=== PATIENT | female | born 1990 | race American Indian/Alaskan Native ===

== ENCOUNTER 2016-11-17 23:46 | Emergency (ER) | payer MEDICAID ==
[2016-11-17 23:47] VITALS: BMI 26.4
--- NOTE | 2016-11-18 00:44 | C.PDOC ---
History Of Present Illness 26 y/o female presents to ED with complaint of headache for the last week. Denies photophobia, nausea, or vomiting. Chief Complaint (Nursing): Headache History Per: Patient History/Exam Limitations: no limitations Onset/Duration Of Symptoms: Days Current Symptoms Are (Timing): Still Present Associated Symptoms: denies: Photophobia, Nausea, Vomiting, Extremity Weakness Recent travel outside of the [place]: No Past Medical History Reviewed: Historical Data, Nursing Documentation, Vital Signs Vital Signs: Last Vital Signs Temp 97.9 F 11/18/16 02:29 Pulse 59 L 11/18/16 02:29 Resp 17 11/18/16 02:29 BP 105/67 11/18/16 02:29 Pulse Ox 100 11/18/16 03:56 - Medical History PMH: Anemia, Asthma, Kidney Stones - [facility] Procedures TETANUS TOXOID ADMINIST (03/07/13) Family History: States: Unknown Family Hx - Social History Hx Tobacco Use: No Hx Alcohol Use: Yes Hx Substance Use: No - Immunization History Hx Tetanus Toxoid Vaccination: Yes (03/17/2013) Hx Influenza Vaccination: No Hx Pneumococcal Vaccination: No Review Of Systems Except As Marked, All Systems Reviewed And Found Negative. Constitutional: Negative for: Fever, Chills Eyes: Negative for: Vision Change Gastrointestinal: Negative for: Nausea, Vomiting Musculoskeletal: Negative for: Neck Pain Neurological: Positive for: Headache. Negative for: Weakness, Numbness, Dizziness Physical Exam - Physical Exam Appears: Non-toxic, No Acute Distress Skin: Warm, Dry Head: Atraumatic, Normacephalic Eye(s): bilateral: Normal Inspection, PERRL, EOMI Neck: Normal ROM, No Midline Cervical Tenderness, No Paracervical Tenderness, Supple (no nuchal rigidity) Chest: Symmetrical Cardiovascular: Rhythm Regular Respiratory: Normal Breath Sounds, No Rales, No Rhonchi, No Wheezing Gastrointestinal/Abdominal: Soft, No Tenderness Back: Normal Inspection Extremity: Normal ROM, Capillary Refill (< 2 sec. ), Other (moving all extremities spontaneously) Neurological/Psych: Oriented x3, Normal Speech, Normal Cognition, Normal Cranial Nerves, Normal Motor, Normal Sensation, Normal Reflexes ED Course And Treatment - Laboratory Results Result Diagrams: 11/18/16 01:00 11/18/16 01:00 O2 Sat by Pulse Oximetry: 100 (RA) Pulse Ox Interpretation: Normal - CT Scan/US CT Head Other Rad Studies (CT/US): Read By Radiologist, Radiology Report Reviewed CT/US Interpretation: IMPRESSION: No acute intracranial hemorrhage, or suspicious mass effect. Progress Note: CT Head, bloodwork ordered. Toradol and IVFs given. CT scan negative. Patient with no episodes of vomiting in ER. Upon discharge, patient is complaining of nausea (04:15). Disposition Counseled Patient/Family Regarding: Diagnosis - Disposition Referrals: [facility] [Outside] Disposition: HOME/ ROUTINE Disposition Time: 03:55 Condition: STABLE Prescriptions: Naproxen [Naprosyn Tab] 375 mg PO TIDPC #14 tab Ondansetron ODT [Zofran ODT] 1 odt PO BID PRN #6 odt PRN Reason: Nausea/Vomiting Instructions: General Headache (ED) - POA Present On Arrival: None - Clinical Impression Clinical Impression: Headache - Scribe Statement The provider has reviewed the documentation as recorded by the Meghna Phillips Provider Scribe Attestation: All medical record entries made by the Meghna were at my direction and personally dictated by me. I have reviewed the chart and agree that the record accurately reflects my personal performance of the history, physical exam, medical decision making, and the department course for this patient. I have also personally directed, reviewed, and agree with the discharge instructions and disposition.
[2016-11-18 01:13] LABS: CHLORIDE 100 mmol/L (98-107); POTASSIUM 3.8 mmol/L (3.6-5.2); SODIUM 139 mmol/L (132-148)
[2016-11-18 01:14] LABS: BASO # 0.1 K/uL (0.0-0.2); BASO % 0.8 % (0.0-2.0); EOS # 0.5 K/uL (0.0-0.7); EOS % 5.9 % (0.0-4.0); HEMATOCRIT 36.8 % (34.0-47.0); LYMPH # 3.7 K/uL (1.0-4.3); LYMPH % 43.4 % (20.0-40.0); MEAN CELL VOLUME 85.6 fL (81.0-99.0); MEAN CORPUSCULAR HEMOGLOBIN 27.4 pg (27.0-31.0); MONO # 0.8 K/uL (0.0-0.8); MONO % 9.3 % (0.0-10.0); RED CELL DISTRIBUTION WIDTH 13.1 % (11.5-14.5); WHITE BLOOD COUNT 8.6 K/uL (4.8-10.8)
[2016-11-18 01:15] LABS: GFR AFRICAN-AMERICAN > 60
[2016-11-18 01:16] LABS: ALB/GLOB RATIO 1.4 (1.0-2.1); ALKALINE PHOSPHATASE 56 U/L (38-126); ALT/SGPT 33 U/L (9-52); AST/SGOT 26 U/L (14-36); BILIRUBIN,TOTAL 0.6 mg/dL (0.2-1.3); BLOOD UREA NITROGEN 12 mg/dL (7-17); CARBON DIOXIDE 27 mmol/L (22-30); GLUCOSE,RANDOM 86 mg/dL (65-105); TOTAL PROTEIN 6.8 g/dL (6.3-8.3)
[2016-11-18 01:17] LABS: CALCIUM 8.9 mg/dl (8.6-10.4)
--- NOTE | 2016-11-18 03:49 | CT ---
EXAM: CT Head Without Intravenous Contrast CLINICAL HISTORY: 26 years old, female; Pain; Headache; Patient HX: For one week TECHNIQUE: Axial computed tomography images of the head/brain without intravenous contrast. This CT exam was performed using one or more of the following dose reduction techniques: automated exposure control, adjustment of the mA and/or kV according to patient size, and/or use of iterative reconstruction technique. COMPARISON: No relevant prior studies available. FINDINGS: Brain: No acute intracranial hemorrhage. No significant white matter disease. No edema. Ventricles: No significant ventriculomegaly. Bones: No acute displaced fracture. Sinuses: Unremarkable as visualized. No acute sinusitis. Mastoid air cells: Unremarkable as visualized. No mastoid effusion. IMPRESSION: No acute intracranial hemorrhage, or suspicious mass effect.
[2016-11-18] MEDS ORDERED: Naproxen 550 mg Tab PO ONE (04:10)
[2016-11-18] MEDS ORDERED: Naproxen 550 mg Tab PO STA (04:11)
[2016-11-18 05:33] VITALS: BP 121/74; PULSE 66; RESP 16; TEMP 98; O2SAT 97
== END 2016-11-18 05:34 | disposition home or self-care (01) ==
LOC: C.ER 23:46
DX: R51 Headache (principal)
CPT/HCPCS: 70450; 80053; 84703; 85025; 96374; 96375; 99285; J1885; J2765

== ENCOUNTER 2017-01-19 03:08 | Emergency (ER) | payer MEDICAID ==
[2017-01-19 03:08] VITALS: BMI 26.4
[2017-01-19 03:38] LABS: SQUAMOUS EPITHIAL 1 /hpf (0-5); URINE BILIRUBIN NEGATIVE (NEGATIVE); URINE BLOOD NEGATIVE (NEGATIVE); URINE CLARITY Clear (Clear); URINE COLOR Yellow (YELLOW); URINE GLUCOSE (UA) NORMAL (Normal); URINE LEUKOCYTE ESTERASE TRACE Leu/uL (Negative); URINE NITRATE NEGATIVE (NEGATIVE); URINE PROTEIN NEGATIVE (NEGATIVE)
[2017-01-19 03:41] LABS: HCG,QUALITATIVE URINE NEGATIVE (NEGATIVE)
[2017-01-19 03:43] LABS: URINE BACTERIA RARE (<OCC)
[2017-01-19] MEDS ORDERED: Sodium Chloride 0.9% 500 ML IV STA (05:55)
--- NOTE | 2017-01-19 06:02 | C.PDOC ---
History Of Present Illness Pt c/o of left flank pain, dysuria and urinary frequency x few days. Pt reports that she has been treated several times in past few months for UTI with different antibiotics and feels no relief. Also reports past h/o of kidney stones and is concerned that her pain may be due to kidney stones. Pt denies fever, N/V/D or urinary symptoms. Time Seen by Provider: 01/19/17 03:52 Chief Complaint (Nursing): Female Genitourinary History Per: Patient History/Exam Limitations: no limitations Current Symptoms Are (Timing): Still Present Severity: Moderate Associated Symptoms: denies: Fever, Nausea, Vomiting, Urinary Symptoms Past Medical History Vital Signs: Last Vital Signs Temp 98.3 F 01/19/17 03:14 Pulse 80 01/19/17 03:14 Resp 18 01/19/17 03:14 BP 110/66 01/19/17 03:14 Pulse Ox 99 01/19/17 06:06 - Medical History PMH: Anemia, Asthma, Kidney Stones Denies: HIV - [facility] Procedures TETANUS TOXOID ADMINIST (03/07/13) Family History: States: Unknown Family Hx - Social History Hx Tobacco Use: No Hx Alcohol Use: No Hx Substance Use: No - Immunization History Hx Tetanus Toxoid Vaccination: Yes (03/17/2013) Hx Influenza Vaccination: No Hx Pneumococcal Vaccination: No Review Of Systems Constitutional: Negative for: Fever, Chills Gastrointestinal: Positive for: Abdominal Pain (LLQ). Negative for: Vomiting, Diarrhea Genitourinary: Negative for: Dysuria, Hematuria, Vaginal Discharge Musculoskeletal: Positive for: Back Pain (Lt) Physical Exam - Physical Exam Appears: Well, Non-toxic Eye(s): bilateral: Normal Inspection, PERRL, EOMI Oral Mucosa: Moist Neck: Normal Cardiovascular: Rhythm Regular Respiratory: Normal Breath Sounds Gastrointestinal/Abdominal: Normal Exam, Bowel Sounds, Soft, Tenderness (LLQ) Back: Normal Inspection, CVA Tenderness (left) Pelvic: Other (Pt refused - done by OB last week) Neurological/Psych: Oriented x3 Gait: Steady ED Course And Treatment - Laboratory Results Urine POC: Negative O2 Sat by Pulse Oximetry: 99 Pulse Ox Interpretation: Normal Progress Note: Labs ordered, incl ABd/ pelvis CT. Toradol IV and IVF hydration ordered Reassessment Condition: Improved Disposition - Disposition Disposition Time: 06:58 Condition: STABLE - Clinical Impression Clinical Impression: Left flank pain Physician Patient Turnover Patient Signed Over To: Tawny Moore Handoff Comments: Pending labs and ABD / pelvis CT
[2017-01-19] MEDS ORDERED: Sodium Chloride 0.9% 500 ML IV ONE ×3 (06:25→12:01)
[2017-01-19 06:51] LABS: ALBUMIN 3.5 g/dL (3.5-5.0)
[2017-01-19 06:53] LABS: GFR AFRICAN-AMERICAN > 60; GFR NON-AFRICAN AMERICAN > 60
[2017-01-19 06:54] LABS: ALB/GLOB RATIO 1.1 (1.0-2.1); ALT/SGPT 29 U/L (9-52); AST/SGOT 27 U/L (14-36); BLOOD UREA NITROGEN 13 mg/dL (7-17)
[2017-01-19 06:55] LABS: CALCIUM 8.6 mg/dl (8.6-10.4); LIPASE 50 U/L (23-300)
[2017-01-19 07:01] LABS: BASO # 0.1 K/uL (0.0-0.2); BASO % 0.7 % (0.0-2.0); EOS # 0.7 K/uL (0.0-0.7); EOS % 6.8 % (0.0-4.0); HEMOGLOBIN 11.2 g/dL (11.0-16.0); LYMPH # 3.9 K/uL (1.0-4.3); LYMPH % 39.2 % (20.0-40.0); MEAN CELL VOLUME 85.6 fL (81.0-99.0); MEAN CORPUSCULAR HEMOGLOBIN 27.7 pg (27.0-31.0); MEAN CORPUSCULAR HGB CONC 32.3 g/dL (33.0-37.0); MEAN PLATELET VOLUME 9.3 fL (7.2-11.7); MONO % 9.8 % (0.0-10.0); NEUT # 4.3 K/uL (1.8-7.0); NEUT % 43.5 % (50.0-75.0); NRBC % 0.1 % (0.0-2.0); RBC 4.04 Mil/uL (3.80-5.20); RED CELL DISTRIBUTION WIDTH 12.9 % (11.5-14.5); WHITE BLOOD COUNT 9.9 K/uL (4.8-10.8)
[2017-01-19] MEDS ORDERED: Morphine 4 MG/ML VIAL ONE (08:44)
--- NOTE | 2017-01-19 10:05 | CT ---
PROCEDURE: CT Abdomen and Pelvis without intravenous contrast HISTORY: Left flank pain COMPARISON: None. TECHNIQUE: Multiple contiguous axial images were performed through the abdomen and pelvis without intravenous contrast. Subsequently, sagittal and coronal reformatted images were obtained.. Radiation dose: Total exam DLP = 641 mGy-cm. This CT exam was performed using one or more of the following dose reduction techniques: Automated exposure control, adjustment of the mA and/or kV according to patient size, and/or use of iterative reconstruction technique. FINDINGS: LOWER THORAX: Mild atelectasis at the lung bases. LIVER: Unremarkable. No gross lesion or ductal dilatation. GALLBLADDER AND BILE DUCTS: Unremarkable. PANCREAS: Unremarkable. No gross lesion or ductal dilatation. SPLEEN: Unremarkable. ADRENALS: Unremarkable. No mass. KIDNEYS AND URETERS: 2.7 millimeter nonobstructive calculus in the lower pole of the right kidney. No hydronephrosis. Left Kidney: Punctate scattered nonobstructive calculi in the left kidney; for example, in the lower pole, a 2 millimeter and in the upper pole a 1.5 millimeter calculus is noted. No hydronephrosis. Multiple calcified phleboliths in the pelvis. VASCULATURE: Unremarkable. No aortic aneurysm. BOWEL: Fecal retention in the colon. Few scattered diverticuli. APPENDIX: Unremarkable. Normal appendix. PERITONEUM: Unremarkable. No free fluid. No free air. LYMPH NODES: Few shotty para-aortic and mesenteric lymph nodes. BLADDER: Mildly distended urinary bladder. REPRODUCTIVE: Heterogeneous prominence of the uterus and endometrium. BONES: No acute fracture. OTHER FINDINGS: None. IMPRESSION: Punctate scattered nonobstructive bilateral renal calculi; left greater than right. Prominent and heterogeneous uterus and endometrium. Correlation with pelvic ultrasound may be helpful if clinically indicated. Additional findings as above.
[2017-01-19] MEDS ORDERED: Oxycodone/Acetaminophen 5/325 mg Tab PO STA (10:42)
[2017-01-19] MEDS ORDERED: Oxycodone/Acetaminophen 5/325 mg Tab ONE (10:59)
[2017-01-19 11:58] VITALS: RESP 18
[2017-01-19 13:30] VITALS: PULSE 65; TEMP 97.9; O2SAT 99
[2017-01-19 13:44] VITALS: BP 109/67
== END 2017-01-19 13:45 | disposition home or self-care (01) ==
LOC: C.ER 03:08 → SUPCPDRO 03:08 → C.ER 13:45
DX: N23 Unspecified renal colic (principal); R10.9 Unspecified abdominal pain
CPT/HCPCS: 74176; 80053; 81001; 83690; 84703; 85025; 87086; 96361; 96374; 96375; 99285; J1885; J2270; J2405; J2765; J7040

== ENCOUNTER 2017-01-20 00:12 | Emergency (ER) | payer MEDICAID ==
[2017-01-20 00:12] VITALS: BMI 26.4
[2017-01-20] MEDS ORDERED: Sodium Chloride 0.9% 1,000 ML IV ONE (01:16)
--- NOTE | 2017-01-20 01:16 | C.PDOC ---
History Of Present Illness Patient presents to the ED with right flank pain and is unable to tolerate PO today which prompted visit. Patient was diagnosed with a kidney stone yesterday on CT scan. Patient denies any fever, vomiting, or diarrhea. Time Seen by Provider: 01/20/17 01:15 Chief Complaint (Nursing): Abdominal Pain History Per: Patient History/Exam Limitations: no limitations Onset/Duration Of Symptoms: Hrs Current Symptoms Are (Timing): Still Present Context: Other (kidney stone diagnosis yesterday ) Location Of Pain/Discomfort: Other (right flank pain ) Radiation Of Pain To:: None Quality Of Discomfort: "Pain" Associated Symptoms: denies: Fever, Chills, Nausea, Vomiting, Diarrhea Recent travel outside of the [place]: No Additional History Per: Prior Records Abnormal Vaginal Bleeding: No Past Medical History Reviewed: Historical Data, Nursing Documentation, Vital Signs Vital Signs: Last Vital Signs Temp 98.0 F 01/20/17 00:21 Pulse 75 01/20/17 00:21 Resp 18 01/20/17 00:21 BP 106/70 01/20/17 00:21 Pulse Ox 98 01/20/17 02:12 - Medical History PMH: Anemia, Asthma, Kidney Stones - [facility] Procedures TETANUS TOXOID ADMINIST (03/07/13) Family History: States: Unknown Family Hx - Social History Hx Tobacco Use: No Hx Alcohol Use: No Hx Substance Use: No - Immunization History Hx Tetanus Toxoid Vaccination: Yes (03/17/2013) Hx Influenza Vaccination: No Hx Pneumococcal Vaccination: No Review Of Systems Constitutional: Negative for: Fever, Chills Cardiovascular: Negative for: Chest Pain, Palpitations Respiratory: Negative for: Cough, Shortness of Breath Gastrointestinal: Positive for: Abdominal Pain (right flank pain). Negative for : Nausea, Vomiting, Diarrhea Physical Exam - Physical Exam Appears: Non-toxic, No Acute Distress Skin: Warm, Dry Oral Mucosa: Moist Neck: Supple Chest: Symmetrical, No Deformity Cardiovascular: Rhythm Regular Respiratory: No Rales, No Rhonchi, No Wheezing Gastrointestinal/Abdominal: Soft, Tenderness (right flank tenderness ), No Distention, No Guarding, No Rebound Extremity: Normal ROM, No Tenderness Neurological/Psych: Oriented x3 ED Course And Treatment - Laboratory Results Result Diagrams: 01/20/17 01:53 01/20/17 01:53 O2 Sat by Pulse Oximetry: 98 Pulse Ox Interpretation: Normal Reevaluation Time: 04:54 Reassessment Condition: Improved Disposition Counseled Patient/Family Regarding: Studies Performed, Diagnosis, Need For Followup, Rx Given - Disposition Referrals: Dmitriy Manriquez MD [Staff Provider] - Disposition: HOME/ ROUTINE Disposition Time: 01:16 Condition: FAIR Prescriptions: Acetaminophen/Hydrocodone Bi [Vicodin 300 mg-5 mg] 1 tab PO TID PRN #12 tab PRN Reason: Pain, Severe (8-10) Ondansetron ODT [Zofran ODT] 1 odt PO TID #12 odt Instructions: Abdominal Pain (ED), Renal Colic (ED) - Clinical Impression Clinical Impression: Nephrolithiasis, Abdominal pain - Scribe Statement The provider has reviewed the documentation as recorded by the Scribjulita Vanegas All medical record entries made by the Deborahibjulita were at my direction and personally dictated by me. I have reviewed the chart and agree that the record accurately reflects my personal performance of the history, physical exam, medical decision making, and the department course for this patient. I have also personally directed, reviewed, and agree with the discharge instructions and disposition.
[2017-01-20 01:56] LABS: BASO # 0.1 K/uL (0.0-0.2); BASO % 0.5 % (0.0-2.0); EOS # 0.4 K/uL (0.0-0.7); EOS % 3.8 % (0.0-4.0); HEMOGLOBIN 11.1 g/dL (11.0-16.0); LYMPH # 3.3 K/uL (1.0-4.3); LYMPH % 31.9 % (20.0-40.0); MEAN CELL VOLUME 85.2 fL (81.0-99.0); MEAN CORPUSCULAR HEMOGLOBIN 27.2 pg (27.0-31.0); MEAN CORPUSCULAR HGB CONC 31.9 g/dL (33.0-37.0); MEAN PLATELET VOLUME 9.1 fL (7.2-11.7); MONO # 0.9 K/uL (0.0-0.8); MONO % 8.3 % (0.0-10.0); NEUT # 5.7 K/uL (1.8-7.0); NEUT % 55.5 % (50.0-75.0); NRBC % 0.1 % (0.0-2.0); RBC 4.1 Mil/uL (3.80-5.20); WHITE BLOOD COUNT 10.3 K/uL (4.8-10.8)
[2017-01-20 02:04] LABS: SQUAMOUS EPITHIAL 3 /hpf (0-5); URINE BILIRUBIN NEGATIVE (NEGATIVE); URINE BLOOD NEGATIVE (NEGATIVE); URINE CLARITY Clear (Clear); URINE COLOR Amber (YELLOW); URINE GLUCOSE (UA) NORMAL (Normal); URINE LEUKOCYTE ESTERASE 1+ Leu/uL (Negative); URINE NITRATE NEGATIVE (NEGATIVE); URINE PROTEIN NEGATIVE (NEGATIVE)
[2017-01-20 02:05] LABS: INR 1.1; PROTHROMBIN TIME 12.3 SECONDS (9.7-12.2)
[2017-01-20 02:08] LABS: ALBUMIN 3.5 g/dL (3.5-5.0)
[2017-01-20 02:11] LABS: ALB/GLOB RATIO 1.1 (1.0-2.1); ALT/SGPT 32 U/L (9-52); AST/SGOT 28 U/L (14-36); BLOOD UREA NITROGEN 8 mg/dL (7-17); GFR AFRICAN-AMERICAN > 60; GFR NON-AFRICAN AMERICAN > 60
[2017-01-20 02:12] LABS: CALCIUM 8.8 mg/dl (8.6-10.4); LIPASE 20 U/L (23-300)
[2017-01-20 05:26] VITALS: BP 111/68; PULSE 76; RESP 16; TEMP 98; O2SAT 99
== END 2017-01-20 05:20 | disposition home or self-care (01) ==
LOC: C.ER 00:12
DX: N20.0 Calculus of kidney (principal); Z87.442 Personal history of urinary calculi; R10.9 Unspecified abdominal pain
CPT/HCPCS: 80053; 81001; 83690; 85025; 85610; 85730; 96374; 96375; 99284; J2270; J2405; J7040

== ENCOUNTER 2017-08-23 20:15 | Emergency (ER) | payer MEDICAID ==
[2017-08-23 20:15] VITALS: BMI 30.5
[2017-08-23 20:30] VITALS: BP 138/72; PULSE 98; TEMP 98.4; O2SAT 99
--- NOTE | 2017-08-23 20:44 | C.PDOC ---
History Of Present Illness 26 yo female w/o significant PMhx present to ED for evaluation of subjective , fever, bodyaches, dry cough gradually developed for past 48 hrs. Otherwise, denies lethargy, drooling, dysphagia, dyspnea, SOB, wheezing, abd. pain, V/D, rash. At the time of evaluation, pt is awake,comfortable, not in any apparent distress. Time Seen by Provider: 08/23/17 20:18 Chief Complaint (Nursing): Flu-like Symptoms Past Medical History Vital Signs: Last Vital Signs Temp 98.4 F 08/23/17 20:27 Pulse 98 H 08/23/17 20:27 Resp 20 08/23/17 21:12 BP 138/72 08/23/17 20:27 Pulse Ox 99 08/23/17 20:51 - Medical History PMH: Anemia, Asthma, Bronchitis, Kidney Stones, Chronic Kidney Disease Denies: Anxiety, Arthritis, Bipolar Disorder, COPD, Crohn's Disease, Depression, Diverticulitis, Emphysema, Fractures, Gastritis, Gall Bladder Disease, HIV, Hyperthyroidism, Hypothyroidism, Osteoporosis, Pancreatitis, Paranoia, Pneumonia, Post Traumatic Stress Disorder, Pulmonary Embolism, Rheumatoid Arthritis, Schizophrenia, Sickle Cell Disease, Sexually Transmitted Disease, Sleep Apnea - [facility] Procedures TETANUS TOXOID ADMINIST (03/07/13) Family History: States: Unknown Family Hx - Social History Hx Tobacco Use: No Hx Alcohol Use: No Hx Substance Use: No - Immunization History Hx Tetanus Toxoid Vaccination: Yes (03/17/2013) Hx Influenza Vaccination: No Hx Pneumococcal Vaccination: No Physical Exam - Physical Exam Appears: Well, Non-toxic, No Acute Distress Skin: Normal Color, Warm, Dry, No Rash Eye(s): bilateral: PERRL Ear(s): Bilateral: Normal Nose: No Flaring, Discharge (clear scant B/L) Oral Mucosa: Moist, No Drooling Tongue: Normal Appearing Lips: Normal Appearing Throat: No Erythema, No Drooling Neck: Trachea Midline, Supple Cardiovascular: Rhythm Regular Respiratory: No Decreased Breath Sounds, No Accessory Muscle Use, No Stridor, No Wheezing Gastrointestinal/Abdominal: Soft, No Tenderness, No Distention, No Guarding Back: No CVA Tenderness Extremity: Normal ROM, No Deformity, No Swelling Neurological/Psych: Oriented x3, Normal Speech ED Course And Treatment O2 Sat by Pulse Oximetry: 99 Pulse Ox Interpretation: Normal Progress Note: On re-evaluation, pt is awake, playful, not in any apparent distress. Afebrile, hemodynamicaly stable. Non-toxic, tolerate PO well in ED. PulsEOx 99% RA. ENT: no acute findings. Neck: Supple, (-) meningeal sign. Lungs: CTA B/L, BS equal B/L. Abd: benign, (-) guaridng, (-) rebound. Neurologicaly intact. Pt has clinical findings c/w Influenza-like illness. Pt advised. ref. to f/u with PMD in 2-3 days for re-eval. return to ED if any worsening or new changes. Disposition Counseled Patient/Family Regarding: Diagnosis, Need For Followup, Rx Given - Disposition Referrals: Dmitriy Manriquez MD [Primary Care Provider] - Disposition: HOME/ ROUTINE Disposition Time: 20:49 Condition: STABLE Additional Instructions: bedrest for 2-3 days Encourage fluids Take medication as prescribed Follow up with PMD in 2-3 days for re-evaluation. return to ED if any worsening or new changes. Prescriptions: Benzonatate [Tessalon Perle] 100 mg PO TID #14 capsule Ibuprofen [Motrin Tab] 400 mg PO Q6 #20 tab Oseltamivir Phosphate [Tamiflu] 75 mg PO BID #10 capsule Instructions: Influenza (ED) Forms: [facility] (Tristanian), Work Excuse - Clinical Impression Clinical Impression: Influenza-like illness
[2017-08-23 21:13] VITALS: RESP 20
== END 2017-08-23 21:12 | disposition home or self-care (01) ==
LOC: C.ER 20:15 → SUPCPDRO 20:15 → C.ER 21:12
DX: J11.1 Influenza due to unidentified influenza virus with other respiratory manifestations (principal)

== ENCOUNTER 2017-09-01 08:09 | Emergency (ER) | payer MEDICAID ==
[2017-09-01 08:10] VITALS: BMI 30.5
[2017-09-01 08:17] VITALS: RESP 18
[2017-09-01] MEDS ORDERED: Sodium Chloride 0.9% 1,000 ML IV ONE (08:39)
[2017-09-01] MEDS ORDERED: Sodium Chloride 0.9% 1,000 ML ONE (08:46)
--- NOTE | 2017-09-01 08:49 | C.PDOC ---
History Of Present Illness 26 y/o female presents to ED with complaints of headache, abdominal pain, vomiting and diarrhea. Patient was recently seen at ED and diagnosed with Flu. Patient reports she was compliant with Tamiflu and finished medication. Patient states she took Zofran at home with no improvement. LMP x1 week ago Time Seen by Provider: 09/01/17 08:20 Chief Complaint (Nursing): Abdominal Pain History Per: Patient History/Exam Limitations: no limitations Onset/Duration Of Symptoms: Days Current Symptoms Are (Timing): Still Present Location Of Pain/Discomfort: Diffuse Quality Of Discomfort: Cramping Associated Symptoms: Nausea, Vomiting, Diarrhea. denies: Fever, Chills Abnormal Vaginal Bleeding: No Past Medical History Reviewed: Historical Data, Nursing Documentation, Vital Signs Vital Signs: Last Vital Signs Temp 99.1 F 09/01/17 12:14 Pulse 96 H 09/01/17 12:14 Resp 18 09/01/17 12:14 BP 97/60 L 09/01/17 12:14 Pulse Ox 95 09/01/17 12:14 - Medical History PMH: Anemia, Asthma, Bronchitis, Kidney Stones, Chronic Kidney Disease Surgical History: No Surg Hx - [facility] Procedures TETANUS TOXOID ADMINIST (03/07/13) Family History: States: No Known Family Hx - Social History Hx Tobacco Use: No Hx Alcohol Use: No Hx Substance Use: No - Immunization History Hx Tetanus Toxoid Vaccination: Yes (03/17/2013) Hx Influenza Vaccination: No Hx Pneumococcal Vaccination: No Review Of Systems Constitutional: Positive for: Malaise. Negative for: Fever, Chills Eyes: Negative for: Vision Change, Redness ENT: Negative for: Ear Discharge, Throat Pain Cardiovascular: Negative for: Chest Pain, Palpitations Respiratory: Negative for: Cough, Shortness of Breath Gastrointestinal: Positive for: Nausea, Vomiting, Abdominal Pain, Diarrhea Genitourinary: Negative for: Dysuria Skin: Negative for: Rash Physical Exam - Physical Exam Appears: Non-toxic, No Acute Distress, Other (Uncomfortable) Skin: Warm, Dry, No Rash Head: Atraumatic, Normacephalic Eye(s): bilateral: Normal Inspection, EOMI Nose: Normal, No Discharge Oral Mucosa: Moist Neck: Normal ROM, Supple Chest: Symmetrical Cardiovascular: Rhythm Regular, No Murmur Respiratory: Normal Breath Sounds, No Rales, No Rhonchi, No Wheezing Gastrointestinal/Abdominal: Bowel Sounds, Soft, Tenderness (Diffusely tender, non-focal), No Distention, No Guarding, No Rebound Back: Normal Inspection, No CVA Tenderness, No Vertebral Tenderness, No Paraspinal Tenderness Extremity: Bilateral: Atraumatic, No Pedal Edema, Normal Color And Temperature, Normal ROM Neurological/Psych: Oriented x3, Normal Speech Gait: Steady ED Course And Treatment - Laboratory Results Result Diagrams: 09/01/17 09:26 09/01/17 09:26 Lab Interpretation: No Acute Changes O2 Sat by Pulse Oximetry: 99 (RA) Pulse Ox Interpretation: Normal Medical Decision Making Medical Decision Making: Impression: abdominal pain, vomiting, diarrhea, likely viral Plan: Blood work, UA ordered. IV NS Reglan and Pepcid administered Progress: Labs reviewed and shows no electrolyte abnormality to suggest dehydration, or elevated WBC. Patient has not provided urine sample UA reviewed and no UTI. Patient reevaluated she states she feels unchanged, feels tired and wants to rest. Toradol IVP given. Re-Eval, patient is sleeping. She is clinically stable and ready for discharge. Explain to patient she has viral illness which can last 48-72 hours, recommend rest and hydration at home. Disposition Counseled Patient/Family Regarding: Diagnosis, Need For Followup, Rx Given - Disposition Referrals: Dmitriy Manriquez MD [Staff Provider] - Disposition: HOME/ ROUTINE Disposition Time: 12:00 Condition: IMPROVED Additional Instructions: Drink fluids to prevent dehydration. Take Zofran as prescribed. Take Pepcid for any abdominal discomfort and Florastor to help with diarrhea. Try low-fat diet with increase in fluids such as sport drink, gelatin. Try soup, rice, bread, crackers, cereal, bananas to help with diarrhea. Avoid high sugar foods or drinks (soda and juice) , fatty foods Prescriptions: Famotidine [Pepcid] 20 mg PO DAILY #20 tab Ondansetron ODT [Zofran ODT] 1 odt PO BID PRN #6 odt PRN Reason: Nausea/Vomiting Saccharomyces Boulardi [Florastor] 250 mg PO BID #20 cap Instructions: Gastroenteritis (DC) Forms: [employer] (Uzbek) - POA Present On Arrival: None - Clinical Impression Clinical Impression: Gastroenteritis - PA / [employer] / Resident Statement MD/DO has reviewed & agrees with the documentation as recorded. - Scribe Statement The provider has reviewed the documentation as recorded by the Scribe Raghavendra Enrique All medical record entries made by the Meghna were at my direction and personally dictated by me. I have reviewed the chart and agree that the record accurately reflects my personal performance of the history, physical exam, medical decision making, and the department course for this patient. I have also personally directed, reviewed, and agree with the discharge instructions and disposition.
[2017-09-01 09:32] LABS: BASO % 0.6 % (0.0-2.0); EOS # 0.2 K/uL (0.0-0.7); EOS % 4.2 % (0.0-4.0); HEMOGLOBIN 11.5 g/dL (11.0-16.0); LYMPH # 0.4 K/uL (1.0-4.3); LYMPH % 7.4 % (20.0-40.0); MEAN CELL VOLUME 85.1 fL (81.0-99.0); MEAN CORPUSCULAR HEMOGLOBIN 27.9 pg (27.0-31.0); MEAN CORPUSCULAR HGB CONC 32.8 g/dL (33.0-37.0); MEAN PLATELET VOLUME 9.2 fL (7.2-11.7); MONO # 0.8 K/uL (0.0-0.8); MONO % 15.2 % (0.0-10.0); NEUT # 3.6 K/uL (1.8-7.0); NEUT % 72.6 % (50.0-75.0); PLATELET COUNT 181 K/uL (130-400); RBC 4.12 Mil/uL (3.80-5.20); RED CELL DISTRIBUTION WIDTH 13.3 % (11.5-14.5)
[2017-09-01 09:45] LABS: ALB/GLOB RATIO 1.2 (1.0-2.1); ALBUMIN 3.9 g/dL (3.5-5.0); ALT/SGPT 41 U/L (9-52); AST/SGOT 25 U/L (14-36); BLOOD UREA NITROGEN 13 mg/dL (7-17); CALCIUM 8.9 mg/dl (8.6-10.4); GFR AFRICAN-AMERICAN > 60; GFR NON-AFRICAN AMERICAN > 60; LIPASE 32 U/L (23-300)
[2017-09-01 10:05] LABS: BANDS 1 % (0-2); EOSINOPHIL 1 % (0-4); LYMPHOCYTE 7 % (20-40); TOTAL CELLS COUNTED 100
[2017-09-01 10:06] LABS: ANISOCYTOSIS SLIGHT; HYPOCHROMIC SLIGHT; MONOCYTE 14 % (0-10); NEUTROPHIL 77 % (50-75); PLATELET ESTIMATE NORMAL (NORMAL)
[2017-09-01 10:07] LABS: MICROCYTOSIS SLIGHT
[2017-09-01 10:52] LABS: HCG,QUALITATIVE URINE NEGATIVE (NEGATIVE)
[2017-09-01 11:02] LABS: SQUAMOUS EPITHIAL 7 /hpf (0-5); URINE BILIRUBIN NEGATIVE (NEGATIVE); URINE BLOOD NEGATIVE (NEGATIVE); URINE CLARITY Hazy (Clear); URINE COLOR Yellow (YELLOW); URINE GLUCOSE (UA) NORMAL (Normal); URINE LEUKOCYTE ESTERASE NEG Leu/uL (Negative); URINE NITRATE NEGATIVE (NEGATIVE); URINE PROTEIN NEGATIVE (NEGATIVE)
[2017-09-01 12:15] VITALS: BP 97/60; PULSE 96; TEMP 99.1
[2017-09-01 12:51] VITALS: O2SAT 99
== END 2017-09-01 12:30 | disposition home or self-care (01) ==
LOC: C.ER 08:09
DX: K52.9 Noninfective gastroenteritis and colitis, unspecified (principal); N18.9 Chronic kidney disease, unspecified
CPT/HCPCS: 80053; 81001; 83690; 84703; 85025; 96361; 96374; 96375; 99285; J1885; J2765; J7040

== ENCOUNTER 2018-05-06 09:33 | Emergency (ER) | payer MEDICAID ==
[2018-05-06 09:38] VITALS: BMI 25.0
[2018-05-06] MEDS ORDERED: Sodium Chloride 0.9% 1,000 ML IV ONE (10:23)
--- NOTE | 2018-05-06 10:49 | RAD ---
HISTORY: productive cough r/o PNA COMPARISON: Chest x-ray performed 10/22/15 TECHNIQUE: Chest PA and lateral FINDINGS: LUNGS: No focal consolidation. Please note that chest x-ray has limited sensitivity for the detection of pulmonary masses. PLEURA: No significant pleural effusion identified. No definite pneumothorax . CARDIOVASCULAR: The cardiomediastinal silhouette appears within normal limits of size. No atherosclerotic calcification present. OSSEOUS STRUCTURES: No acute osseous abnormality identified. VISUALIZED UPPER ABDOMEN: Unremarkable. OTHER FINDINGS: None. IMPRESSION: No focal consolidation, significant pleural effusion, or definite pneumothorax identified.
[2018-05-06 10:54] LABS: BASO % 0.5 % (0.0-2.0); EOS # 0.2 K/uL (0.0-0.7); EOS % 4.1 % (0.0-4.0); HEMOGLOBIN 12.6 g/dL (11.0-16.0); LYMPH # 1.5 K/uL (1.0-4.3); LYMPH % 31.5 % (20.0-40.0); MEAN CELL VOLUME 85.7 fL (81.0-99.0); MEAN CORPUSCULAR HEMOGLOBIN 27.3 pg (27.0-31.0); MEAN CORPUSCULAR HGB CONC 31.8 g/dL (33.0-37.0); MEAN PLATELET VOLUME 9.2 fL (7.2-11.7); MONO # 0.7 K/uL (0.0-0.8); MONO % 14.2 % (0.0-10.0); NEUT # 2.4 K/uL (1.8-7.0); NEUT % 49.7 % (50.0-75.0); NRBC % 0.1 % (0.0-2.0); RBC 4.61 Mil/uL (3.80-5.20); RED CELL DISTRIBUTION WIDTH 13.8 % (11.5-14.5); WHITE BLOOD COUNT 4.9 K/uL (4.8-10.8)
[2018-05-06 11:26] LABS: ALB/GLOB RATIO 1.4 (1.0-2.1); ALBUMIN 4.2 g/dL (3.5-5.0); ALT/SGPT 20 U/L (9-52); AST/SGOT 13 U/L (14-36); BLOOD UREA NITROGEN 7 mg/dL (7-17); CALCIUM 9.3 mg/dl (8.6-10.4); GFR NON-AFRICAN AMERICAN > 60
[2018-05-06 12:16] VITALS: BP 105/67; PULSE 73; RESP 18; TEMP 99; O2SAT 100
--- NOTE | 2018-05-06 12:54 | C.PDOC ---
History Of Present Illness 27 y/o female with PMH of asthma presents to the ED c/o sinus congestion and cough x 2 weeks. Pt states her cold symptoms suddenly worsened over the last few days to include cough productive of yellow sputum, chills, diarrhea, body aches, headache, and sore throat. She reports significantly decreased oral intake secondary to throat pain. She has taken tylenol and ibuprofen for her symptoms, last doses this morning. Denies SOB, chest pain, lightheadedness, abdominal pain, nausea, vomiting, ear pain. HPI: Influenza Chief Complaint: ENT Problem Past Medical History Reviewed: Historical Data, Nursing Documentation, Vital Signs Vital Signs: Last Vital Signs Temp 99.0 F 05/06/18 12:15 Pulse 73 05/06/18 12:15 Resp 18 05/06/18 12:15 BP 105/67 05/06/18 12:15 Pulse Ox 100 05/06/18 12:15 - Medical History PMH: Anemia, Asthma, Bronchitis, Kidney Stones, Chronic Kidney Disease Denies: Anxiety, Arthritis, Bipolar Disorder, COPD, Crohn's Disease, Depression, Diabetes, Diverticulitis, Emphysema, Fractures, Gastritis, Gall Bladder Disease, Hepatitis, HIV, HTN, Hyperthyroidism, Hypothyroidism, Osteoporosis, Pancreatitis, Pneumonia, Post Traumatic Stress Disorder, Pulmonary Embolism, Rheumatoid Arthritis, Schizophrenia, Seizures, Sickle Cell Disease, Sexually Transmitted Disease, Sleep Apnea - [facility] Procedures TETANUS TOXOID ADMINIST (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 Constitutional: Positive for: Fever, Chills Eyes: Negative for: Pain, Vision Change, Conjunctivae Inflammation, Eyelid Inflammation, Redness ENT: Positive for: Nose Discharge, Nose Congestion, Throat Pain. Negative for: Ear Pain, Ear Discharge, Nose Pain, Mouth Pain, Mouth Swelling, Throat Swelling Cardiovascular: Negative for: Chest Pain, Palpitations, Light Headedness Respiratory: Positive for: Cough, Sputum. Negative for: Shortness of Breath, Hemoptysis, SOB with Excertion, Pleuritic Pain, Wheezing Gastrointestinal: Positive for: Diarrhea. Negative for: Nausea, Vomiting, Abdominal Pain, Constipation, Hematochezia Genitourinary: Negative for: Dysuria, Frequency, Vaginal Discharge, Vaginal Bleeding Musculoskeletal: Negative for: Neck Pain, Arm Pain, Back Pain Skin: Negative for: Rash, Lesions, Bruising Neurological: Positive for: Headache. Negative for: Weakness, Numbness, Dizziness Physical Exam - Physical Exam Appears: Well, No Acute Distress Skin: Normal Color, Warm, Dry Head: Atraumatic, Normacephalic, No Tenderness Eye(s): bilateral: Normal Inspection, PERRL, EOMI Ear(s): Bilateral: Normal Nose: Normal, Discharge (clear rhinorrhea) Oral Mucosa: Dry Tongue: Normal Appearing Lips: Other (dry) Teeth: Normal Dentition Gingiva: Normal Appearing Throat: Normal Neck: Normal, Normal ROM, No Other (meningeal signs) Lymphatic: Normal Exam, No Adenopathy Chest: Symmetrical, No Deformity, No Tenderness Cardiovascular: Rhythm Regular Respiratory: Normal Breath Sounds, No Decreased Breath Sounds, No Accessory Muscle Use, No Rales, No Rhonchi, No Wheezing Gastrointestinal/Abdominal: Normal Exam, Bowel Sounds, Soft, No Tenderness, No Distention, No Guarding Rectal: Deferred Back: Normal Inspection, No CVA Tenderness, No Vertebral Tenderness, No Decreased ROM, No Muscle Spasm, No Paraspinal Tenderness Extremity: Normal ROM, No Tenderness, No Deformity, No Swelling Extremity: Bilateral: Atraumatic, Normal Color And Temperature, Normal ROM Pulses: Right Brachial: Normal, Left Radial: Normal Neurological/Psych: Oriented x3, Normal Speech, Normal Cognition, Normal Cranial Nerves, No Cerebellar Signs, Normal Motor, Normal Sensation Gait: Steady Medical Decision Making Medical Decision Making: Initial Plan: --IVF for low BP --CBC --CMP --POC Urine Preg --Rapid Strep --CXR CXR: no active disease CBC: WNL CMP: WNL POC Urine Preg: Neg Rapid Strep: Neg Pt feeling better after fluid infusion. Exam remains unchanged. Pt comfortable with discharge home. Impression: Viral URI Plan: --Increase fluids --Mucinex --Flonase --Followup PMD --Return to ED for worsening symptoms - Laboratory Results Result Diagrams: 05/06/18 10:47 05/06/18 10:47 - ECG O2 Sat by Pulse Oximetry: 100 Disposition - Disposition Referrals: [facility] [Outside] Disposition: HOME/ ROUTINE Disposition Time: 12:00 Condition: IMPROVED Additional Instructions: Take mucinex every 12 hours as needed for congestion Take flonase 2 sprays per nostril every morning Increase fluids Take ibuprofen as needed for sore throat Followup with primary within 2 days Return to ER if symptoms worsen Prescriptions: Fluticasone Propionate [Flonase] 2 spr NS DAILY PRN #120 spr PRN Reason: congestion Guaifenesin [Mucinex] 600 mg PO Q12H PRN 7 Days #14 tab PRN Reason: congestion Instructions: Viral Upper Respiratory Infection, Adult (DC) Forms: [employer] (Greenlandic), Work Excuse - Clinical Impression Clinical Impression: Upper respiratory infection
== END 2018-05-06 13:11 | disposition home or self-care (01) ==
LOC: C.ER 09:33
DX: J06.9 Acute upper respiratory infection, unspecified (principal)
CPT/HCPCS: 71046; 80053; 85025; 87070; 87430; 96360; 99284; J7030